=== PATIENT | male | born 1955 | race Caucasian/White ===

== ENCOUNTER 2017-06-15 07:11 | Inpatient (IN) | payer MEDICAID ==
[~2017-06-15] VITALS: Ht 180.3 cm; Wt 83.2 kg
[2017-06-15 08:15] LABS: Basophils # (auto) 0.1 uL; Basophils % (auto) 1.1 % (0.0-2.0); Eosinophils # (auto) 0.2 uL; Eosinophils % (auto) 2.7 % (0.0-7.0); Hematocrit 44.7 % (41.0-53.0); Hemoglobin 14.8 g/dL (13.5-17.5); Lymphocytes # (auto) 1.6 uL; Lymphocytes % (auto) 21.7 % (10.0-50.0); Mean Corpuscular Hemoglobin 28.4 pg (28.0-32.0); Monocytes # (auto) 0.7 uL; Monocytes % (auto) 9.9 % (0.0-12.0); Neutrophils # (auto) 4.8 uL; Neutrophils % (auto) 64.6 % (37.0-80.0); Platelet Count (auto) 247 10^3/uL (140-450); Red Cell Distribution Width 13.9 % (11.8-14.3); White Blood Cell 7.5 10^3/uL (4.4-10.8)
[2017-06-15 08:39] LABS: INR 0.96 (0.9-1.15); Partial Thromboplastin Time 29.3 sec (22.64-33.71); Prothrombin Time 10.5 sec (9.37-12.3)
[2017-06-15 08:42] LABS: Albumin 3.5 g/dL (3.4-5.0); BUN/Creatinine Ratio 10.5; Bilirubin, Total 0.5 mg/dL (0.2-1.0); Calcium 9.2 mg/dL (8.5-10.1); Potassium 4.1 mmol/L (3.5-5.1); Total Protein 6.9 g/dL (6.4-8.2)
[2017-06-15] MEDS ORDERED: guaiFENesin-DM 100/10mg/5ml SYR PO ONE (13:45)
[2017-06-15] MEDS ORDERED: ALBUTEROL SULF 2.5 MG/0.5ML(0.5%) NEB SOLN NEB ONE (13:45)
[2017-06-15] MEDS ORDERED: IPRATROPIUM BROM 0.5 MG/2.5ML INH SOL NEB ONE (13:45)
[2017-06-15] MEDS ORDERED: ONDANSETRON HCL 4 MG/2 ML VIAL IM ONE (13:45)
[2017-06-15] MEDS ORDERED: IPRATROPIUM BROM 0.5 MG/2.5ML INH SOL ONE (13:54)
[2017-06-15] MEDS ORDERED: ALBUTEROL SULF 2.5 MG/0.5ML(0.5%) NEB SOLN ONE (13:54)
[2017-06-15] MEDS ORDERED: guaiFENesin 200 MG/10 ML UD ONE (13:56)
[2017-06-15] MEDS ORDERED: ONDANSETRON HCL 4 MG/2 ML VIAL ONE (13:58)
[2017-06-15] MEDS ORDERED: VANCOMYCIN 1GM/250ML 250 ML IV ONE (14:00)
[2017-06-15] MEDS ORDERED: VANCOMYCIN HCL 1000 MG VL IR ONE (14:00)
[2017-06-15] MEDS ORDERED: ceFAZolin 1GM/50ML 50 ML IV ONE (14:00)
[2017-06-15] MEDS ORDERED: IODIXANOL 320MG/ML 100ML BTL IV ONE (14:56)
[2017-06-15] MEDS ORDERED: fentaNYL CITRATE 100 MCG/2 ML VL ONE (15:09)
[2017-06-15] MEDS ORDERED: VANCOMYCIN HCL 1000 MG VL ONE (15:09)
[2017-06-15] MEDS ORDERED: MIDAZOLAM HCL 1MG/1ML-2 ML VIAL ONE (15:09)
[2017-06-15] MEDS ORDERED: LIDOCAINE HCL 2 %PF INJ 10ML AMP IJ ONE ×2 (15:11→15:29)
[2017-06-15] MEDS ORDERED: FUROSEMIDE 20 MG/2 ML VIAL ONE (16:04)
[2017-06-15] MEDS ORDERED: ALBUAER3 IN (16:24)
[2017-06-15] MEDS ORDERED: CARV6.25 PO (16:24)
[2017-06-15] MEDS ORDERED: TIOT1AER IN (16:24)
[2017-06-15] MEDS ORDERED: FURO40TA4 PO (16:24)
[2017-06-15] MEDS ORDERED: INSLANTI SC (16:24)
[2017-06-15] MEDS ORDERED: IPR002IS HHN (16:24)
[2017-06-15] MEDS ORDERED: LISI2.5T47 PO (16:24)
[2017-06-15] MEDS ORDERED: SODIUM CHLORIDE 0.9% 1,000 ML IV SCH (16:44)
[2017-06-15] MEDS ORDERED: HYDROcodone-ACET 5/325MG TAB PO PRN (16:45)
[2017-06-15] MEDS ORDERED: ACETAMINOPHEN 325 MG TAB PO PRN (16:45)
[2017-06-15] MEDS ORDERED: DEXTROSE (50%) 50ML SYRG IV PRN (17:00)
[2017-06-15] MEDS ORDERED: ALBUTEROL SULF 2.5 MG/0.5ML(0.5%) NEB SOLN NEB PRN (18:00)
[2017-06-15 20:00] VITALS: BP 110/80
[2017-06-15 21:21] VITALS: BP 110/80
[2017-06-15 22:00] VITALS: BP 110/71
[2017-06-15] MEDS: InsuLIN REG 1unit/0.01ml Soln (100units/ml) SC SCH (22:00)
[2017-06-15] MEDS ORDERED: InsuLIN REG 1unit/0.01ml Soln (100units/ml) SC SCH (22:00)
[2017-06-15] MEDS: ACCU-CHEK COMFORT CURVE STRIP VI SCH (22:00)
[2017-06-15] MEDS: CARVEDILOL 3.125 MG TAB PO SCH (22:09)
[2017-06-15] MEDS: INSULIN LANTUS (GLARGINE) 1 /0.01ml (100units/ml) SC SCH (22:10)
[2017-06-15] MEDS: ALBUTEROL SULF 2.5 MG/0.5ML(0.5%) NEB SOLN NEB SCH (22:27)
[2017-06-15] MEDS: IPRATROPIUM BROM 0.5 MG/2.5ML INH SOL NEB SCH (22:27)
[2017-06-16] MEDS ORDERED: VANCOMYCIN 1GM/250ML 250 ML IV SCH (02:00)
[2017-06-16 05:00] VITALS: BP 113/71
[2017-06-16] MEDS: ALBUTEROL SULF 2.5 MG/0.5ML(0.5%) NEB SOLN NEB SCH ×2 (05:54→14:45)
[2017-06-16] MEDS: IPRATROPIUM BROM 0.5 MG/2.5ML INH SOL NEB SCH ×2 (05:54→14:45)
[2017-06-16] MEDS: ACCU-CHEK COMFORT CURVE STRIP VI SCH (06:03)
[2017-06-16] MEDS: InsuLIN REG 1unit/0.01ml Soln (100units/ml) SC SCH (06:03)
[2017-06-16 08:00] VITALS: BP 108/78
[2017-06-16 09:00] VITALS: BP 121/82
[2017-06-16] MEDS ORDERED: FUROSEMIDE 40 MG TAB PO SCH (10:00)
[2017-06-16] MEDS ORDERED: LISINOPRIL 5 MG TAB PO SCH (10:00)
[2017-06-16] MEDS: CARVEDILOL 3.125 MG TAB PO SCH (10:16)
[2017-06-16] MEDS: INSULIN LANTUS (GLARGINE) 1 /0.01ml (100units/ml) SC SCH (10:19)
[2017-06-16 13:00] VITALS: BP 108/78
[2017-06-16 16:36] VITALS: BP 108/78
[2017-06-16 17:00] VITALS: BP 117/87
== END 2017-06-16 18:00 | disposition home or self-care (01) | DRG 161 ==
LOC: ER 07:11 → WEST WING 20:16 → TELE-WESTW 06-16 03:03
PROVIDERS: ADMIT Internal Medicine Cardiovascular Disease; ATTEND Internal Medicine Cardiovascular Disease
PROC: 0JH609Z Insertion of Cardiac Resynchronization Defibrillator Pulse Generator into Chest Subcutaneous Tissue and Fascia, Open Approach (ICD-10-PCS; principal; 2017-06-15)
PROC: 02HK3KZ Insertion of Defibrillator Lead into Right Ventricle, Percutaneous Approach (ICD-10-PCS; 2017-06-15)
PROC: 02H63KZ Insertion of Defibrillator Lead into Right Atrium, Percutaneous Approach (ICD-10-PCS; 2017-06-15)
PROC: 02HL3KZ Insertion of Defibrillator Lead into Left Ventricle, Percutaneous Approach (ICD-10-PCS; 2017-06-15)
DX: I50.21 Acute systolic (congestive) heart failure (principal); I42.0 Dilated cardiomyopathy; R55 Syncope and collapse; I45.81 Long QT syndrome; J44.9 Chronic obstructive pulmonary disease, unspecified; Z72.0 Tobacco use
CPT/HCPCS: 33225; 33249; 36415; 71045; 80053; 82962; 85025; 85610; 85730; 86850; 86900; 86901; 93005; 94640; 96365; 96368; 99152; 99153; J0690; J1815; J2250; J2405; Q9967